=== PATIENT | female | born 1940 | race American Indian/Alaskan Native ===

== ENCOUNTER 2019-04-02 16:30 | Emergency (ER) | payer MEDICARE ==
--- NOTE | 2019-04-02 19:11 | Emergency Department Report ---
Blank Doc - Documentation Documentation: 78-year-old female that presents with SOB, generalized weakness and fatigue. Was seen in [facility] 3 days ago. This initial assessment/diagnostic orders/clinical plan/treatment(s) is/are subject to change based on patient's health status, clinical progression and re-assessment by fellow clinical providers in the ED. Further treatment and workup at subsequent clinical providers discretion. Patient/guardians urged not to elope from the ED as their condition may be serious if not clinically assessed and managed. Initial orders include: 1- Patient sent to MAIN ED for further evaluation and treatment 2- labs 3- EKG 4- CXR
[2019-04-02] MEDS ORDERED: ONDANSETRON 4 MG ODT TAB PO ONE (19:12)
[2019-04-02] MEDS ORDERED: ONDANSETRON 4 MG ODT TAB ONE (19:14)
--- NOTE | 2019-04-02 20:01 | XRay Report ---
CHEST 2 VIEWS INDICATION: MAIN: Chest Pain; Pt. c/o weakness and labile blood sugar. Weakness and poor appetite x 2 days. . COMPARISON: 01/09/2018. FINDINGS: Support devices: None. Heart: Moderate cardiomegaly. Clarissa no prominent hilar enlargement. Lungs/Pleura: Decreased lung volumes with mild increased interstitial markings. No significant pleu ral effusion. IMPRESSION: 1. Development of cardiomegaly with prominent hilar enlargement. A dedicated PA and lateral chest or contrast-enhanced CT chest is recommended for more complete evaluation. 2. Diminished lung volumes with mild vascular congestion. Signer Name: Atif An MD Signed: 04/02/2019 7:57 PM Workstation Name: [id number]
[2019-04-02 20:52] LABS: Hematocrit 39.4 % (30.3-42.9); Mean Corpuscular HGB Conc 33 % (30-34); Mean Corpuscular Volume 87 fl (79-97); Red Blood Count 4.53 M/mm3 (3.65-5.03); Red Cell Distribution Width 16.4 % (13.2-15.2)
[2019-04-02 20:53] LABS: Platelet Count 207 K/mm3 (140-440)
[2019-04-02 20:58] LABS: INR 1.09 (0.87-1.13); Partial Thromboplastin Time 24.2 Sec. (24.2-36.6)
[2019-04-02 21:20] LABS: Albumin 4.1 g/dL (3.9-5); Calcium 10.4 mg/dL (8.4-10.2)
[2019-04-02 23:14] VITALS: BP 149/89
== END 2019-04-03 01:57 | disposition left against medical advice (07) ==
LOC: ED 16:30
DX: R06.02 Shortness of breath (principal); Z53.21 Procedure and treatment not carried out due to patient leaving prior to being seen by health care provider
CPT/HCPCS: 36415; 71046; 80053; 82962; 83690; 84484; 85025; 85610; 85730; 87086; Q0162

== ENCOUNTER 2019-04-27 18:14 | Emergency (ER) | payer MEDICARE ==
--- NOTE | 2019-04-27 19:17 | Emergency Department Report ---
ED General Adult HPI - General Chief complaint: Skin/Abscess/Foreign Body Stated complaint: LUMP IN BREAST Time Seen by Provider: 04/27/19 19:10 Source: patient, EMS ( EMS documentation not available at time of chart dictation ), RN notes reviewed, old records reviewed Mode of arrival: Stretcher Limitations: Other (The patient is a poor historian) - History of Present Illness Initial comments: This is an 78-year-old female. The patient is not known to myself previously. Has a history of presumed dementia, hypertension, heart disease, stent, high c holesterol, CHF, hypothyroidism, end-stage renal disease on hemodialysis, Tuesday, Tuesday, Tuesday. She missed her hemodialysis today. She presents to the ER with a complaint of painless mass to the left breast. She tells me the left breast mass has been there for day or 2. She denies additional injuries and additional complaints. She is apparently from a retirement. She is not accompanied by any friends, family for additional collateral information. -: days(s) Location: chest (Left-sided breast mass) Radiation: non-radiation Consistency: constant Improves with: none Worsens with: none - Related Data Home Medications Medication Instructions Recorded Confirmed Last Taken Aspirin 325 mg PO QDAY 04/03/19 04/03/19 Unknown AtorvaSTATin [Lipitor] 20 mg PO QHS 04/03/19 04/03/19 Unknown Auryxia 210 mg PO TID 04/03/19 04/03/19 Unknown Cinacalcet [Sensipar] 30 mg PO QDAY 04/03/19 04/03/19 Unknown Clopidogrel [Plavix] 75 mg PO QDAY 04/03/19 04/03/19 Unknown Dextrose [Glucose] 4 gm PO PRN 04/03/19 04/03/19 Unknown Ergocalciferol (Vitamin D2) 50,000 unit PO QWEEK 04/03/19 04/03/19 Unknown [Vitamin D2] Insulin Glargine [Lantus VIAL] 14 unit SUB-Q QHS 04/03/19 04/03/19 Unknown Levothyroxine [Synthroid] 75 mcg PO QAM 04/03/19 04/03/19 Unknown Vit B Cplx C No.13/Folic AC/D3 1 mg PO QDAY 04/03/19 04/03/19 Unknown [Nephrocaps Qt Tablet] Pantoprazole [Protonix TAB] 40 mg PO QDAY 04/04/19 04/04/19 04/03/19 06:00 donepeziL [Aricept] 10 mg PO HS 04/04/19 04/04/19 Unknown Previous Rx's Medication Instructions Recorded Last Taken Type Lispro Insulin [HumaLOG] 0 unit SUB-Q ACHS units 04/10/19 Unknown Rx oxyCODONE /ACETAMINOPHEN [Percocet 1 tab PO Q6H PRN #7 tablet 04/10/19 Unknown Rx 5/325 mg] Allergies Allergy/AdvReac Type Severity Reaction Status Date / Time No Known Allergies Allergy Verified 07/31/13 08:15 ED Review of Systems ROS: Stated complaint: LUMP IN BREAST Other details as noted in HPI Constitutional: denies: fever Eyes: denies: eye discharge ENT: denies: congestion Respiratory: denies: cough Cardiovascular: denies: chest pain Gastrointestinal: denies: abdominal pain Genitourinary: as per HPI Musculoskeletal: denies: back pain Skin: as per HPI, lesions Neurological: as per HPI Psychiatric: as per HPI Hematological/Lymphatic: as per HPI ED Past Medical Hx - Past Medical History Hx Hypertension: Yes Hx Congestive Heart Failure: Yes Hx Diabetes: Yes (IDDM) Hx GERD: Yes Hx Renal Disease: Yes (ESRD, T TH Sat) Hx Arthritis: Yes - Social History Smoking Status: Never Smoker - Medications Home Medications: Home Medications Medication Instructions Recorded Confirmed Last Taken Type Aspirin 325 mg PO QDAY 04/03/19 04/03/19 Unknown History AtorvaSTATin [Lipitor] 20 mg PO QHS 04/03/19 04/03/19 Unknown History Auryxia 210 mg PO TID 04/03/19 04/03/19 Unknown History Cinacalcet [Sensipar] 30 mg PO QDAY 04/03/19 04/03/19 Unknown History Clopidogrel [Plavix] 75 mg PO QDAY 04/03/19 04/03/19 Unknown History Dextrose [Glucose] 4 gm PO PRN 04/03/19 04/03/19 Unknown History Ergocalciferol (Vitamin D2) 50,000 unit PO QWEEK 04/03/19 04/03/19 Unknown History [Vitamin D2] Insulin Glargine [Lantus VIAL] 14 unit SUB-Q QHS 04/03/19 04/03/19 Unknown History Levothyroxine [Synthroid] 75 mcg PO QAM 04/03/19 04/03/19 Unknown History Vit B Cplx C No.13/Folic AC/D3 1 mg PO QDAY 04/03/19 04/03/19 Unknown History [Nephrocaps Qt Tablet] Pantoprazole [Protonix TAB] 40 mg PO QDAY 04/04/19 04/04/19 04/03/19 06:00 History donepeziL [Aricept] 10 mg PO HS 04/04/19 04/04/19 Unknown History Lispro Insulin [HumaLOG] 0 unit SUB-Q ACHS units 04/10/19 Unknown Rx oxyCODONE /ACETAMINOPHEN [Percocet 1 tab PO Q6H PRN #7 tablet 04/10/19 Unknown Rx 5/325 mg] ED Physical Exam - General Limitations: Other (Patient demented and a poor historian) General appearance: alert, in no apparent distress - Head Head exam: Present: atraumatic, normocephalic - Eye Eye exam: Present: normal appearance, EOMI. Absent: nystagmus - ENT ENT exam: Present: normal exam, normal orophraynx, mucous membranes moist, normal external ear exam - Neck Neck exam: Present: normal inspection, full ROM. Absent: tenderness, meningismus - Respiratory Respiratory exam: Present: normal lung sounds bilaterally. Absent: respiratory distress - Cardiovascular Cardiovascular Exam: Present: regular rate, normal rhythm, normal heart sounds. Absent: bradycardia, tachycardia, irregular rhythm, systolic murmur, diastolic murmur, rubs, gallop - GI/Abdominal GI/Abdominal exam: Present: soft. Absent: distended, tenderness, guarding, rebound, rigid, pulsatile mass - Extremities Exam Extremities exam: Present: normal inspection, full ROM, other (There is a left upper extremity fistula, with an appropriate thrill. There is no redness, pus o r streaking.). Absent: calf tenderness - Back Exam Back exam: Present: normal inspection, full ROM. Absent: tenderness, CVA tenderness (R), CVA tenderness (L), paraspinal tenderness, vertebral tenderness - Neurological Exam Neurological exam: Present: alert, other (There is no facial droop. The tongue is midline. The extraocular movements are intact bilaterally. There is 5 out of 5 strength in 4 extremities. Sensation is intact to light touch in 4 extremities) - Psychiatric Psychiatric exam: Present: anxious - Skin Skin exam: Present: warm, other (There is hyperpigmented skin noted on the left inferior lateral aspect of the breast, with firmness and induration noted. There is no tenderness, fluctuance, there is no redness, pus or streaking. Chaperoned by nurse Environmental Inspector Oral) ED Course Vital Signs 04/27/19 04/27/19 04/27/19 19:24 19:25 20:59 Temperature 98.1 F 98.1 F Pulse Rate 100 H 100 H Respiratory 16 16 16 Rate Blood Pressure 106/66 Blood Pressure 106/66 [Right] O2 Sat by Pulse 99 99 Oximetry 04/27/19 22:08 Temperature 98.1 F Pulse Rate 81 Respiratory 16 Rate Blood Pressure Blood Pressure 120/77 [Right] O2 Sat by Pulse 98 Oximetry - Reevaluation(s) Reevaluation #1: 04/27/19 19:37 Differential diagnosis, including but not limited to: Breast mass, malignant versus nonmalignant, end-stage renal disease, hyperkalemia Assessment and plan: 78-year-old female with clinically chronic appearing left- sided breast mass, firm and indurated, concerning for cancer, tumor, malignancy. She is otherwise afebrile with reassuring vital signs. The mass does not jordan ear to be superinfected. Clinically she does not appear to be volume overloaded. We will obtain basic metabolic panel to rule out hyperkalemia, uremia, and azotemia. Patient will need to follow-up with an outpatient primary care doctor, or breast surgeon/specialist for further evaluation of his left- sided breast mass. Reevaluation #2: 04/27/19 20:31 Patient resting comfortably and in no acute distress. Family at the bedside. Discussed significance of patient's examination with family, and articulated need to closely follow-up to evaluate for tumor, cancer, malignancy. Patient's daughter at the bedside, and she verbalizes understanding. ED Medical Decision Making - Lab Data Result diagrams: 04/27/19 19:31 Vital Signs 04/27/19 04/27/19 19:24 19:25 Temperature 98.1 F 98.1 F Pulse Rate 100 H 100 H Respiratory 16 16 Rate Blood Pressure 106/66 Blood Pressure 106/66 [Right] O2 Sat by Pulse 99 99 Oximetry Vital Signs 04/27/19 04/27/19 19:24 19:25 Temperature 98.1 F 98.1 F Pulse Rate 100 H 100 H Respiratory 16 16 Rate Blood Pressure 106/66 Blood Pressure 106/66 [Right] O2 Sat by Pulse 99 99 Oximetry Critical care attestation.: If time is entered above; I have spent that time in minutes in the direct care of this critically ill patient, excluding procedure time. ED Disposition Clinical Impression: ESRD (end stage renal disease), Breast mass Disposition: DC/TX- HOME UNDER HOME HLTH Is pt being admited?: No Does the pt Need Aspirin: No Condition: Stable Additional Instructions: Continue current outpatient medications. Recommend following up with a primary care doctor, oncologist, or breast surgeon within the next 7 to 10 days for further evaluation of left-sided breast mass. Patient should have this mass closely evaluated as an outpatient to avoid/exclude cancer, tumor, malignancy. Return to the emergency room right away with new, worsened or different sym ptoms, or symptoms not present on the initial emergency room evaluation. Patient may take Tylenol, 650 mg by mouth, every 4-6 hours as needed for pain. Referrals: VASILE WATTS MD [Staff Physician] - 3-5 Days SHERIE MADSEN MD [Staff Physician] - 3-5 Days [facility] [Provider Group] - 3-5 Days [facility] [Provider Group] - 3-5 Days
[2019-04-27 20:12] LABS: Calcium 9.2 mg/dL (8.4-10.2)
[2019-04-27] MEDS ORDERED: ACETAMINOPHEN 325 MG TAB PO STA (20:31)
[2019-04-27 22:08] VITALS: BP 120/77
== END 2019-04-27 22:09 | disposition home health service (06) ==
LOC: ED 18:14
DX: E13.22 Other specified diabetes mellitus with diabetic chronic kidney disease (principal); I13.2 Hypertensive heart and chronic kidney disease with heart failure and with stage 5 chronic kidney disease, or end stage renal disease; I50.9 Heart failure, unspecified; N18.6 End stage renal disease; Z99.2 Dependence on renal dialysis; Z79.4 Long term (current) use of insulin; K21.9 Gastro-esophageal reflux disease without esophagitis; M19.90 Unspecified osteoarthritis, unspecified site
CPT/HCPCS: 36415; 80048; 82550

== ENCOUNTER 2019-05-16 14:11 | Outpatient (CLI) | payer MEDICARE ==
--- NOTE | 2019-05-16 16:18 | Ultrasound Report ---
COMPLETE LEFT BREAST ULTRASOUND HISTORY: Left breast mass COMPARISON: None. FINDINGS: Complete sonographic evaluation including imaging of the four quadrants and subareolar aspe ct of the left breast was performed. An irregular solid heterogeneous hypoechoic mass at 2:00 6 cm fr om the nipple measures 3.0 x 2.1 x 2.8 cm. The mass is palpable. A second adjacent mass at 2:00 6 cm from the nipple measures 2.2 x 2.0 x 1.0 cm. This mass is also irregular and heterogeneously hypoecho ic. A complex cyst versus solid mass at 10:00 5 cm from the nipple measures 5 x 4 x 2 mm. Ultrasound of the left axilla demonstrated several grossly abnormal lymph nodes with no central fat. The largest measures 2.9 x 2.3 x 2.5 cm. IMPRESSION: Highly suspicious left breast masses at 2:00 6 cm from the nipple and highly suspicious left axillary lymph nodes. Recommend ultrasound-guided needle biopsy of the largest breast mass and of the largest lymph node. BI-RADS Category 5: Highly Suggestive of Malignancy. Signer Name: Kishore Torres MD Signed: 05/16/2019 4:14 PM Workstation Name: [id number]
--- NOTE | 2019-05-16 16:23 | Ultrasound Report ---
ULTRASOUND-GUIDED NEEDLE CORE BIOPSY LEFT BREAST WITH CLIP PLACEMENT and ULTRASOUND-GUIDED NEEDLE COR E BIOPSY LEFT AXILLARY LYMPH NODE WITH CLIP PLACEMENT CLINICAL: Highly suspicious left breast masses and left axillary lymph nodes. FINDINGS: Consent for the procedure was obtained from the family.. Ultrasound demonstrated the previously identified dominant 3 cm breast mass at 2:00 6 cm from the nip ple and the dominant 3 cm lymph node.. I marked the breast with a felt tip marker and a timeout was called. The skin was prepped with Chloro -Prep and anesthetized with 1% lidocaine. Needle core biopsy of the largest axillary lymph node was performed through small dermatotomy using u ltrasound guidance, 1% lidocaine for anesthesia and an 18-gauge Achieve biopsy device. 2 cores were o btained and placed in formalin. A marker clip was deployed within the lymph node. Needle core biopsy was then performed at 2:00 6 cm from the nipple through a small dermatotomy using ultrasound guidance, 2% lidocaine with epinephrine for deep anesthesia and a 14-gauge Achieve biopsy device. 3 cores were obtained and placed in formalin. A clip was deployed within the mass. The patient tolerated the procedure well and there were no apparent complications. Hemostasis was ach ieved with minimal effort and a sterile dressing was applied. A post procedure mammogram demonstrated concordant clip deployment. She left the department in good c ondition and was given instructions for wound care and follow-up. IMPRESSION: Uncomplicated ultrasound guided needle core biopsies with clip placement left breast and left axillary lymph node. Signer Name: Kishore Torres MD Signed: 05/16/2019 4:18 PM Workstation Name: [id number]
== END 2019-05-16 14:12 | disposition home or self-care (01) ==
LOC: SPVWC 14:11
PROVIDERS: ATTEND Surgery
DX: N63.21 Unspecified lump in the left breast, upper outer quadrant (principal); C77.3 Secondary and unspecified malignant neoplasm of axilla and upper limb lymph nodes; C50.412 Malignant neoplasm of upper-outer quadrant of left female breast; R92.8 Other abnormal and inconclusive findings on diagnostic imaging of breast; Z79.899 Other long term (current) drug therapy; Z79.4 Long term (current) use of insulin; Z79.82 Long term (current) use of aspirin; N18.6 End stage renal disease; I25.10 Atherosclerotic heart disease of native coronary artery without angina pectoris; E11.22 Type 2 diabetes mellitus with diabetic chronic kidney disease; E03.9 Hypothyroidism, unspecified; I13.2 Hypertensive heart and chronic kidney disease with heart failure and with stage 5 chronic kidney disease, or end stage renal disease; I50.9 Heart failure, unspecified; G93.40 Encephalopathy, unspecified; Z98.41 Cataract extraction status, right eye; Z86.73 Personal history of transient ischemic attack (TIA), and cerebral infarction without residual deficits; K21.9 Gastro-esophageal reflux disease without esophagitis; Z99.2 Dependence on renal dialysis; M19.90 Unspecified osteoarthritis, unspecified site; Z98.890 Other specified postprocedural states; Z86.2 Personal history of diseases of the blood and blood-forming organs and certain disorders involving the immune mechanism; D64.9 Anemia, unspecified; Z82.49 Family history of ischemic heart disease and other diseases of the circulatory system; Z83.3 Family history of diabetes mellitus; Z82.61 Family history of arthritis; Z82.5 Family history of asthma and other chronic lower respiratory diseases; Z84.89 Family history of other specified conditions
CPT/HCPCS: 38505; 76942; 88305; 88342; 88361